=== PATIENT | female | born 1950 | race American Indian/Alaskan Native ===

== ENCOUNTER 2024-11-06 10:52 | Emergency (ER) | payer OTHER ==
[~2024-11-06] VITALS: Ht 165.1 cm; Wt 80.0 kg
[2024-11-06 10:54] VITALS: O2SAT 99
[2024-11-06] MEDS ORDERED: TOPUD PO (14:04)
[2024-11-06] MEDS: HYDROCHLOROTHIAZIDE 25MG TABLET PO ONE (16:25)
[2024-11-06] MEDS: AMLODIPINE 10MG TABLET PO ONE (16:25)
[2024-11-06] MEDS: LOSARTAN 100 MG TABLET PO ONE (16:25)
[2024-11-06] MEDS: ATENOLOL 25MG TABLET PO ONE (16:25)
[2024-11-06 17:09] VITALS: BP 188/82; PULSE 78; RESP 16; O2SAT 100
== END 2024-11-06 17:15 | disposition home or self-care (01) ==
LOC: ER 11:27
DX: S00.03XA Contusion of scalp, initial encounter (principal); S00.12XA Contusion of left eyelid and periocular area, initial encounter; E11.9 Type 2 diabetes mellitus without complications; I10 Essential (primary) hypertension; F19.90 Other psychoactive substance use, unspecified, uncomplicated; W01.0XXA Fall on same level from slipping, tripping and stumbling without subsequent striking against object, initial encounter; Y93.89 Activity, other specified; Y92.89 Other specified places as the place of occurrence of the external cause; Y99.8 Other external cause status
CPT/HCPCS: 70486; 73100; 73560; 99285